=== PATIENT | male | born 1990 | race Caucasian/White ===

== ENCOUNTER 2019-03-31 17:23 | Emergency (ER) | payer OTHER | END 2019-03-31 19:26 | disposition home or self-care (01) | LOC: JERFT 17:23 ==

== ENCOUNTER 2022-10-13 17:25 | Emergency (ER) | payer OTHER ==
[2022-10-13 17:44] VITALS: BP 127/85; PULSE 70; RESP 18; TEMP 98.7; BMI 31.0
[2022-10-13] MEDS ORDERED: BENZOCAINE/MENTH/CETYLPYRD CL 1 EACH LOZENGE MM PRN (18:11)
[2022-10-13] MEDS ORDERED: SODIUM CHLORIDE FOR INHALATION 3 ML VIAL.NEB IH ONE (18:12)
[2022-10-13] MEDS ORDERED: BENZOCAINE/MENTH/CETYLPYRD CL 1 EACH LOZENGE MM ONE (18:19)
[2022-10-13] MEDS ORDERED: AZITHROMYCIN 250 MG TABLET PO ONE (18:41)
[2022-10-13] MEDS ORDERED: AZITHROMYCIN 250 MG TABLET ONE (19:44)
== END 2022-10-13 20:05 | disposition home or self-care (01) ==
LOC: JER 17:25
DX: J20.9 Acute bronchitis, unspecified (principal)
CPT/HCPCS: 0241U-QW; 71046-TC-FY; 99284-25

== ENCOUNTER 2022-10-17 21:28 | Emergency (ER) | payer OTHER ==
[2022-10-17 21:36] VITALS: BP 152/83; PULSE 66; RESP 19; TEMP 98.1; BMI 31.0
[2022-10-17] MEDS ORDERED: DEXAMETHASONE 4 MG TABLET (FP) PO ONE (23:49)
[2022-10-18] MEDS ORDERED: DEXAMETHASONE 4 MG TABLET (FP) ONE (01:06)
== END 2022-10-18 01:12 | disposition home or self-care (01) ==
LOC: JER 21:28
DX: R05.9 Cough, unspecified (principal); R11.2 Nausea with vomiting, unspecified
CPT/HCPCS: 71046-TC-FY; 99283-25